=== PATIENT | female | born 1940 | race Caucasian/White ===

== ENCOUNTER 2022-10-01 15:39 | Outpatient (CLI) | payer MEDICARE, BC, SELFPAY | END 2022-10-01 15:40 | disposition home or self-care (01) | LOC: NFLDUCREF 10-04 14:49 | PROVIDERS: PCP Family Medicine; Visit Provider Nurse Practitioner Family | DX: R39.89 Other symptoms and signs involving the genitourinary system (principal); N39.0 Urinary tract infection, site not specified | CPT/HCPCS: 87086; 87186 ==

== ENCOUNTER 2025-09-21 11:00 | Outpatient (CLI) | payer MEDICARE, OTHER, SELFPAY | END 2025-09-21 11:01 | disposition home or self-care (01) | LOC: NFLDREF 09-26 05:45 | PROVIDERS: PCP Family Medicine; Referring Provider Family Medicine; Visit Provider Physician Assistant Medical | DX: N39.0 Urinary tract infection, site not specified (principal) | CPT/HCPCS: 87086 ==

== ENCOUNTER 2025-09-26 12:35 | Outpatient (CLI) | payer MEDICARE, OTHER, SELFPAY | END 2025-09-26 12:36 | disposition home or self-care (01) | LOC: NFLDUCREF 12:37 | PROVIDERS: PCP Family Medicine; Visit Provider Family Medicine | DX: Z79.01 Long term (current) use of anticoagulants (principal) | CPT/HCPCS: 85610 ==